=== PATIENT | male | born 1960 | race African-American/Black ===

== ENCOUNTER 2020-03-17 09:08 | Emergency (ER) | payer MEDICARE, MEDICAID ==
[~2020-03-17] VITALS: Ht 188 cm; Wt 85.0 kg
[~2020-03-17 09:08] MED LIST: LIDOCAINE HCL/PF 1% 2ML VIAL ONE
[2020-03-17] MEDS ORDERED: ASPIRIN 81MG TABLET PO ONE (09:45)
[2020-03-17] MEDS: ALBUTEROL (0.083%) 2.5MG/3ML NEB HHN SCH ×3 (09:52→11:22)
[2020-03-17 10:27] LABS: BG BASE EXCESS 0.7 mmol/L (-2.0-2.0); BG CARBOXYHEMOGLOBIN 4.5 % (0.5-1.5); BG DEOXYHEMOGLOBIN 1.2 % (0.0-5.0); BG FRACTION INSPIRED OXYGEN 60; BG HCO3 ACT 24.1 mmol/L (22.0-26.0); BG METHEMOGLOBIN 0.3 % (0.0-1.5); BG OXYGEN SATURATION 98.7 % (92.0-98.5); BG PCO2 35.2 mmHg (35.0-45.0); BG PH 7.453 (7.350-7.450); BG PO2 158.9 mmHg (75.0-100.0); BG SAMPLE SITE RIGHT RADIAL; BG TOTAL HEMOGLOBIN 15.3 g/dL (12.0-18.0); BG VENT MODE HHN
[2020-03-17] MEDS ORDERED: CEFTRIAXONE 1 G PREMIX 50 ML IV ONE (10:45)
[2020-03-17] MEDS ORDERED: METHYLPREDNISOLONE SOD SUCC 125 MG/2 ML VIAL IV ONE (10:45)
[2020-03-17] MEDS ORDERED: DOXYCYCLINE HYCLATE 100MG CAPSULE PO ONE (10:45)
[2020-03-17 11:01] LABS: HEMATOCRIT. 45.4 % (42.0-52.0); HEMOGLOBIN. 15.4 g/dL (14.0-18.0); MEAN CORPUSCULAR HEMOGLOBIN 35.2 pg (28.0-32.0); MEAN PLATELET VOLUME 8.8 fl (7.4-10.4); PLATELET 251 x1000/uL (130-400); RED BLOOD CELL COUNT 4.37 mill/uL (4.7-6.1); RED CELL DISTRIBUTION WIDTH 12.9 % (11.6-14.6)
[2020-03-17 11:15] LABS: CHLORIDE 100 mEq/L (98-107)
[2020-03-17 12:04] LABS: PLATELET ESTIMATE NORMAL
[2020-03-17] MEDS ORDERED: ONDANSETRON HCL 4MG/2ML INJ IV PRN (20:30)
[2020-03-17] MEDS ORDERED: ALBUTEROL 6.7GM HFA INHALER ORI PRN (20:30)
[2020-03-17] MEDS ORDERED: ZOLPIDEM TARTRATE 5MG TABLET PO PRN (20:30)
[2020-03-17] MEDS ORDERED: DIPHENHYDRAMINE 50MG/ML VIAL IV PRN (20:30)
[2020-03-17] MEDS ORDERED: ACETAMINOPHEN 325MG TABLET PO PRN ×2 (20:30)
[2020-03-17] MEDS ORDERED: CLONIDINE 0.1MG TABLET PO PRN (20:30)
[2020-03-17] MEDS ORDERED: MAGNESIUM/ALUMINUM HYDROXIDE/SIMETHICONE 30ML UDC PO PRN (20:30)
[2020-03-17] MEDS ORDERED: GUAIFENESIN 200MG/10ML SUGAR FREE UDC PO PRN (20:30)
[2020-03-17] MEDS ORDERED: BENZONATATE 200MG CAPSULE PO PRN (20:45)
[2020-03-17] MEDS ORDERED: GUAIFENESIN 600MG ER TABLET PO SCH (21:00)
[2020-03-17] MEDS ORDERED: AZITHROMYCIN 500 MG in DEXT 5% WATER 250 ML IV SCH (21:00)
[2020-03-17] MEDS ORDERED: ENOXAPARIN 40MG/0.4ML SYR SUBCUT SCH (21:00)
[2020-03-17 21:17] VITALS: BP 127/79
[2020-03-17] MEDS ORDERED: SODIUM CHLORIDE 0.9% INJ 3ML FLUSH IVF SCH (22:00)
[2020-03-18] MEDS ORDERED: CEFTRIAXONE 1 G PREMIX 50 ML IV SCH (09:00)
== END 2020-03-17 23:09 | disposition left against medical advice (07) ==
LOC: ER 09:08 → EDBEDREQ 12:53 → EDBEDREQTM 12:53 → ER 23:09 → CANBEDREQ 03-18 16:16
DX: J18.9 Pneumonia, unspecified organism (principal); J44.1 Chronic obstructive pulmonary disease with (acute) exacerbation; F17.200 Nicotine dependence, unspecified, uncomplicated; Z20.828 Contact with and (suspected) exposure to other viral communicable diseases
CPT/HCPCS: 36415; 36600; 71045; 80053; 82375; 82805; 83605; 83880; 84484; 85025; 87040; 93005; 96374; 96375; 99291; C9803; J0456; J0696; J2930; J3490; J7060; U0003